=== PATIENT | female | born 1990 | race African-American/Black ===

== ENCOUNTER → 2017-02-05 | Outpatient (CLI) | payer OTHER | LOC: EMS 11:55 | PROVIDERS: ATTEND Emergency Medicine | DX: R51 Headache (principal); R55 Syncope and collapse ==

== ENCOUNTER 2017-02-06 00:10 | Emergency (ER) | payer OTHER ==
[~2017-02-06] VITALS: Ht 160 cm; Wt 45.5 kg
[2017-02-06] MEDS ORDERED: ACETAMINOPHEN 500 MG TAB (TYLENOL) PO ONE (00:25)
[2017-02-06 00:35] LABS: BASOPHILS % (AUTO) 0 % (0-2); EOSINOPHILS % (AUTO) 0 % (0-4); LYMPHOCYTES # (AUTO) 0.4 X10^3; MEAN CORPUSCULAR HEMOGLOBIN 29.8 PG (26.0-34.0); MEAN CORPUSCULAR HGB CONC 34.3 g/dL (31.0-37.0); MEAN CORPUSCULAR VOLUME 87 FL (80-100); MEAN PLATELET VOLUME 10.1 FL (6.0-9.5); MONOCYTES # (AUTO) 0.5 X10^3; MONOCYTES % (AUTO) 14 % (3-11); NEUTROPHILS # (AUTO) 2.5 X10^3; NEUTROPHILS % (AUTO) 75 % (51-67); PLATELET COUNT 159 10^3uL (150-450); WHITE BLOOD COUNT 3.33 10^3uL (4.0-11.0)
[2017-02-06 00:44] LABS: ALBUMIN 4.6 g/dL (3.4-5.0); ANION GAP 13.8 MEQ/L (3-15); TOTAL PROTEIN 7.7 g/dL (6.4-8.5)
[2017-02-06 00:49] LABS: INFLUENZA VIRUS TYPE A ANTIBOD Negative (NEGATIVE); INFLUENZA VIRUS TYPE B ANTIBOD Positive (NEGATIVE)
[2017-02-06] MEDS ORDERED: [UNRECOGNIZED DRUG - OTHER] PO ONE (01:05)
[2017-02-06 03:03] VITALS: BP 117/81
[2017-02-06 03:03] LABS: BILIRUBIN,URINE Negative (Negative); CLARITY,URINE Clear; COLOR,URINE Yellow; GLUCOSE, URINE (UA) Negative (Negative); LEUKOCYTE ESTERASE ,URINE Negative (Negative); PH,URINE 5.5 (5.0 - 8.0); UROBILINOGEN,URINE 0.2 mg/dL (0.2-1.0)
[2017-02-06 03:12] LABS: URINE CENTRIFUGED VOLUME 12 mL
== END 2017-02-06 01:50 | disposition home or self-care (01) ==
LOC: EDBD 00:10 → ED 00:12
DX: R55 Syncope and collapse (principal); J11.1 Influenza due to unidentified influenza virus with other respiratory manifestations; S00.93XA Contusion of unspecified part of head, initial encounter; Y92.63 Factory as the place of occurrence of the external cause; W18.39XA Other fall on same level, initial encounter; Y99.0 Civilian activity done for income or pay
CPT/HCPCS: 36415; 80053; 81003; 81015; 84703; 85025; 87502; 93005; 96360; 99285; J7030; 93010; 99284

== ENCOUNTER → 2017-02-06 | Outpatient (CLI) | payer OTHER | LOC: EUOP 01:00 | PROVIDERS: ATTEND Emergency Medicine | DX: Z02.89 Encounter for other administrative examinations (principal); Z02.83 Encounter for blood-alcohol and blood-drug test ==